=== PATIENT | male | born 1950 | race African-American/Black ===

== ENCOUNTER 2019-04-04 10:53 | Inpatient (IN) | payer MEDICARE, MEDICAID ==
[2019-04-04] VITALS (21 sets, daily range): BP systolic 74–142; BP diastolic 37–74
[~2019-04-04] VITALS: Ht 175.3 cm; Wt 105.2 kg
[~2019-04-04 10:53] MED LIST: ENAL10TA PO; HYDR-2510 PO; HYDR12.54 PO
[2019-04-04] MEDS ORDERED: SODIUM CHLORIDE 0.9% 1,000 ML IV ONE (11:20)
[2019-04-04] MEDS ORDERED: PANTOPRAZOLE SODIUM 40 MG/VIAL IV STA (11:20)
[2019-04-04] MEDS ORDERED: ONDANSETRON HCL 4MG/2ML INJ IV STA (11:20)
[2019-04-04] MEDS ORDERED: MORPHINE SULFATE 4 MG/ML CPJ (NOT FOR IM USE) IV STA (11:20)
[2019-04-04 11:46] LABS: BASOPHILS % 0.2 % (0.0-2.0); EOSINOPHILS % 0.1 % (0.0-5.0); HEMATOCRIT. 21.6 % (42.0-52.0); HEMOGLOBIN. 7.2 g/dL (14.0-18.0); LYMPHOCYTES % 10.9 % (20.0-50.0); MEAN CORPUSCULAR HEMOGLOBIN 32.8 pg (28.0-32.0); MEAN CORPUSCULAR VOLUME 98.9 fL (80.0-94.0); MEAN PLATELET VOLUME 7.7 fl (7.4-10.4); MONOCYTES % 12.2 % (2.0-8.0); NEUTROPHILS % 76.6 % (40.0-76.0); PLATELET 263 x1000/uL (130-400); RED BLOOD CELL COUNT 2.19 mill/uL (4.7-6.1); RED CELL DISTRIBUTION WIDTH 17.1 % (11.6-14.6)
[2019-04-04 11:49] LABS: CHLORIDE 101 mEq/L (98-107)
[2019-04-04 11:51] LABS: INR 1.5; PARTIAL THROMBOPLASTIN TIME 30.8 sec (23.4-31.0); PROTHROMBIN TIME 15.6 sec (9.6-11.0)
[2019-04-04 11:53] LABS: ETHANOL BLOOD < 10 mg/dL
[2019-04-04] MEDS ORDERED: OCTREOTIDE ACETATE 50 MCG/ML 1ML IV ONE (12:00)
[2019-04-04] MEDS ORDERED: OCTREOTIDE 1,000 MCG in SODIUM CHLORIDE 0.9% 100 ML IV ONE (12:00)
[2019-04-04] MEDS ORDERED: SODIUM BICARBONATE 8.4% 1 MEQ/ML 50ML SYR IV ONE (12:15)
[2019-04-04] MEDS ORDERED: DEXTROSE 50% WATER 50ML SYRINGE IV ONE (12:15)
[2019-04-04] MEDS ORDERED: PHYTONADIONE 10MG/ML AMP IM ONE (12:15)
[2019-04-04] MEDS ORDERED: INSULIN REGULAR (HUMULIN R) 300UNITS/3ML IV ONE (12:15)
[2019-04-04] MEDS ORDERED: CALCIUM CHLORIDE 1GM/10ML SYR IV ONE (12:15)
[2019-04-04 12:30] LABS: PHOSPHORUS 7.1 mg/dL (2.5-4.9)
[2019-04-04] MEDS ORDERED: IPRATROPIUM/ALBUTEROL 0.5-3(2.5)MG/3ML NEB HHN PRN (12:30)
[2019-04-04 12:38] LABS: BG BASE EXCESS -10.1 mmol/L (-2.0-2.0); BG CARBOXYHEMOGLOBIN 0.3 % (0.5-1.5); BG DEOXYHEMOGLOBIN 6.3 % (0.0-5.0); BG FRACTION INSPIRED OXYGEN 21; BG HCO3 ACT 15.8 mmol/L (22.0-26.0); BG METHEMOGLOBIN 0.3 % (0.0-1.5); BG OXYGEN SATURATION 93.7 % (92.0-98.5); BG OXYHEMOGLOBIN 93.1 % (94.0-97.0); BG PCO2 34.7 mmHg (35.0-45.0); BG PH 7.275 (7.350-7.450); BG PO2 86.7 mmHg (75.0-100.0); BG SAMPLE SITE RIGHT RADIAL; BG TOTAL HEMOGLOBIN 9.5 g/dL (12.0-18.0); BG VENT MODE ROOM AIR
[2019-04-04] MEDS ORDERED: SODIUM BICARBONATE 8.4% 1 MEQ/ML 50ML SYR IV NR (13:00)
[2019-04-04] MEDS ORDERED: OCTREOTIDE 1,000 MCG in SODIUM CHLORIDE 0.9% 100 ML IV NR (13:15)
[2019-04-04 15:46] LABS: HEPATITIS B SURFACE AB < 3.1 mIU/mL
[2019-04-04 16:27] LABS: HEPATITIS A AB IGM NEGATIVE (NEGATIVE)
[2019-04-04 16:31] LABS: CREATINE KINASE MB FRACTION 7.2 ng/mL (0.5-3.6)
[2019-04-04 16:36] LABS: TOTAL IRON BINDING CAPACITY 247 ug/dL (250-450)
[2019-04-04 16:43] LABS: FOLIC ACID (FOLATE) SERUM 11.1 ng/mL (>5.38)
[2019-04-04] MEDS ORDERED: HEPARIN SODIUM 1,000 UNIT/1ML VIAL IV NR (17:45)
[2019-04-04] MEDS: PANTOPRAZOLE SODIUM 40 MG/VIAL IV SCH (18:55)
[2019-04-04] MEDS ORDERED: PHYTONADIONE 10MG/ML AMP SUBCUT SCH (20:00)
[2019-04-04] MEDS: OCTREOTIDE 1,000 MCG in SODIUM CHLORIDE 0.9% 98 ML IV SCH ×2 (20:00→22:55)
[2019-04-04] MEDS: NOREPINEPHRINE 16 MG in DEXT 5% WATER 234 ML IV PRN ×2 (20:25→20:54)
[2019-04-05] VITALS (101 sets, daily range): BP systolic 81–139; BP diastolic 42–106
[2019-04-05 07:43] LABS: HEMOGLOBIN. 7.5 g/dL (14.0-18.0); MEAN CORPUSCULAR HEMOGLOBIN 33.1 pg (28.0-32.0); MEAN CORPUSCULAR VOLUME 96.9 fL (80.0-94.0); MEAN PLATELET VOLUME 8.1 fl (7.4-10.4); PLATELET 229 x1000/uL (130-400); RED BLOOD CELL COUNT 2.27 mill/uL (4.7-6.1); RED CELL DISTRIBUTION WIDTH 17.3 % (11.6-14.6)
[2019-04-05 07:50] LABS: CHLORIDE 102 mEq/L (98-107)
[2019-04-05 07:51] LABS: INR 1.5; PROTHROMBIN TIME 15.2 sec (9.6-11.0)
[2019-04-05 07:58] LABS: CREATINE KINASE MB FRACTION 5.2 ng/mL (0.5-3.6); LDL CHOLESTEROL 198 mg/dL (5-100)
[2019-04-05 08:00] LABS: CREATINE KINASE 757 IU/L (39-308); HDL CHOLESTEROL 14 mg/dL (40-59)
[2019-04-05] MEDS: PANTOPRAZOLE SODIUM 40 MG/VIAL IV SCH ×2 (08:46→18:59)
[2019-04-05] MEDS ORDERED: MORPHINE SULFATE 4 MG/ML CPJ (NOT FOR IM USE) IV PRN (10:15)
[2019-04-05 14:14] LABS: NUCLEATED RED BLOOD CELLS 9 /100 WBC
[2019-04-05 14:15] LABS: PLATELET ESTIMATE NORMAL
[2019-04-05] MEDS ORDERED: MIDAZOLAM HCL 5 MG/5 ML VIAL ONE (14:39)
[2019-04-05] MEDS ORDERED: FENTANYL CITRATE/PF 50MCG/ML 2ML VIAL ONE (14:39)
[2019-04-05] MEDS ORDERED: SIMETHICONE 40 MG/0.6 ML 30ML ONE (14:40)
[2019-04-05] MEDS ORDERED: MIDAZOLAM HCL 5 MG/5 ML VIAL IV PRN (16:03)
[2019-04-05] MEDS ORDERED: EPINEPHRINE 0.1MG/ML (1:10,000) 10ML SYR ONE (16:29)
[2019-04-05] MEDS ORDERED: PHYTONADIONE 10MG/ML AMP SUBCUT NR (17:15)
[2019-04-05 20:46] LABS: HEMATOCRIT 25.3 % (42.0-52.0); HEMOGLOBIN 8.8 g/dL (14.0-18.0)
[2019-04-05] MEDS: SUCRALFATE 1 G/10 ML UDC PO SCH (21:00)
[2019-04-05] MEDS: PROPRANOLOL HCL 10MG TABLET PO SCH (21:00)
[2019-04-05] MEDS: OCTREOTIDE 1,000 MCG in SODIUM CHLORIDE 0.9% 98 ML IV SCH (21:54)
[2019-04-06] VITALS (94 sets, daily range): BP systolic 92–149; BP diastolic 51–80
[2019-04-06 05:20] LABS: HEMATOCRIT. 29.5 % (42.0-52.0); HEMOGLOBIN. 9.8 g/dL (14.0-18.0); MEAN CORPUSCULAR HEMOGLOBIN 32.5 pg (28.0-32.0); MEAN CORPUSCULAR VOLUME 97.7 fL (80.0-94.0); MEAN PLATELET VOLUME 8.1 fl (7.4-10.4); PLATELET 215 x1000/uL (130-400); RED BLOOD CELL COUNT 3.02 mill/uL (4.7-6.1)
[2019-04-06 05:46] LABS: CREATINE KINASE MB FRACTION 1.7 ng/mL (0.5-3.6)
[2019-04-06] MEDS: SUCRALFATE 1 G/10 ML UDC PO SCH ×4 (05:46→21:00)
[2019-04-06] MEDS: PANTOPRAZOLE SODIUM 40 MG/VIAL IV SCH ×2 (08:29→17:07)
[2019-04-06] MEDS: PROPRANOLOL HCL 10MG TABLET PO SCH ×2 (09:00→21:00)
[2019-04-06 09:03] LABS: NUCLEATED RED BLOOD CELLS 16 /100 WBC; PLATELET ESTIMATE NORMAL
[2019-04-06] MEDS ORDERED: LACTULOSE 300 ML in WATER FOR IRRIGATION,STERILE 700 ML IR SCH (12:00)
[2019-04-06 12:10] LABS: HEPATITIS B SURFACE ANTIGEN NEGATIVE
[2019-04-06 14:12] LABS: CREATINE KINASE 550 IU/L (39-308)
[2019-04-06] MEDS ORDERED: LACTULOSE 20G/30ML UDC PO NR (15:00)
[2019-04-06] MEDS: MORPHINE SULFATE 2 MG/ML CPJ (NOT FOR IM USE) IV PRN (15:52)
[2019-04-06] MEDS: LACTULOSE 20G/30ML UDC PO SCH (22:16)
[2019-04-07] VITALS (96 sets, daily range): BP systolic 90–154; BP diastolic 38–107
[2019-04-07] MEDS: MORPHINE SULFATE 2 MG/ML CPJ (NOT FOR IM USE) IV PRN ×2 (01:08→20:11)
[2019-04-07] MEDS: ONDANSETRON HCL 4MG/2ML INJ IV PRN (01:08)
[2019-04-07] MEDS: DIPHENHYDRAMINE 50MG/ML VIAL IV PRN ×2 (02:08→22:21)
[2019-04-07] MEDS ORDERED: DILTIAZEM HCL 5MG/ML 5ML VIAL IV NR (05:45)
[2019-04-07] MEDS: DILTIAZEM HCL 125 MG in DEXT 5% WATER 100 ML IV NR ×2 (05:51→19:56)
[2019-04-07 05:58] LABS: PHOSPHORUS 3.6 mg/dL (2.5-4.9)
[2019-04-07] MEDS: SUCRALFATE 1 G/10 ML UDC PO SCH ×4 (06:23→21:29)
[2019-04-07] MEDS: LACTULOSE 20G/30ML UDC PO SCH ×3 (06:26→21:30)
[2019-04-07] MEDS: PANTOPRAZOLE SODIUM 40 MG/VIAL IV SCH ×2 (08:31→17:26)
[2019-04-07] MEDS: PROPRANOLOL HCL 10MG TABLET PO SCH ×2 (08:34→21:30)
[2019-04-07] MEDS ORDERED: SUCRALFATE 1 G/10 ML UDC PO SCH (09:30)
[2019-04-07] MEDS: NOREPINEPHRINE 16 MG in DEXT 5% WATER 234 ML IV PRN (10:30)
[2019-04-07] MEDS: OCTREOTIDE 1,000 MCG in SODIUM CHLORIDE 0.9% 98 ML IV SCH (17:40)
[2019-04-07] MEDS ORDERED: DILTIAZEM HCL 125 MG in DEXTROSE 5% WATER 125 ML IV SCH (19:00)
[2019-04-08] VITALS (95 sets, daily range): BP systolic 88–151; BP diastolic 40–82
[2019-04-08] MEDS: MORPHINE SULFATE 2 MG/ML CPJ (NOT FOR IM USE) IV PRN ×2 (04:17→18:50)
[2019-04-08 05:33] LABS: HEMATOCRIT. 28.5 % (42.0-52.0); HEMOGLOBIN. 9.3 g/dL (14.0-18.0); MEAN CORPUSCULAR HEMOGLOBIN 32.8 pg (28.0-32.0); MEAN CORPUSCULAR VOLUME 100.3 fL (80.0-94.0); RED BLOOD CELL COUNT 2.84 mill/uL (4.7-6.1); RED CELL DISTRIBUTION WIDTH 18.1 % (11.6-14.6)
[2019-04-08] MEDS: LACTULOSE 20G/30ML UDC PO SCH ×3 (05:57→21:24)
[2019-04-08] MEDS: SUCRALFATE 1 G/10 ML UDC PO SCH ×4 (05:57→21:24)
[2019-04-08] MEDS: PANTOPRAZOLE SODIUM 40 MG/VIAL IV SCH ×2 (08:58→17:00)
[2019-04-08] MEDS: PROPRANOLOL HCL 10MG TABLET PO SCH ×2 (09:00→21:25)
[2019-04-08 09:40] LABS: NUCLEATED RED BLOOD CELLS 3 /100 WBC; PLATELET ESTIMATE NORMAL
[2019-04-08 09:41] LABS: MEAN PLATELET VOLUME 8.2 fl (7.4-10.4); PLATELET 182 x1000/uL (130-400)
[2019-04-08 11:11] LABS: CREATINE KINASE 203 IU/L (39-308)
[2019-04-09] VITALS (89 sets, daily range): BP systolic 88–145; BP diastolic 44–126
[2019-04-09] MEDS: MORPHINE SULFATE 2 MG/ML CPJ (NOT FOR IM USE) IV PRN (01:21)
[2019-04-09] MEDS: DIPHENHYDRAMINE 50MG/ML VIAL IV PRN ×3 (04:55→16:09)
[2019-04-09] MEDS: SUCRALFATE 1 G/10 ML UDC PO SCH ×4 (05:42→21:36)
[2019-04-09] MEDS: LACTULOSE 20G/30ML UDC PO SCH ×2 (05:42→16:08)
[2019-04-09 05:47] LABS: BASOPHILS % 0.3 % (0.0-2.0); EOSINOPHILS % 0.3 % (0.0-5.0); HEMATOCRIT. 28.7 % (42.0-52.0); HEMOGLOBIN. 9.6 g/dL (14.0-18.0); LYMPHOCYTES % 17.1 % (20.0-50.0); MEAN CORPUSCULAR HEMOGLOBIN 33.4 pg (28.0-32.0); MEAN CORPUSCULAR VOLUME 99.5 fL (80.0-94.0); MONOCYTES % 13.8 % (2.0-8.0); NEUTROPHILS % 68.5 % (40.0-76.0); RED BLOOD CELL COUNT 2.88 mill/uL (4.7-6.1); RED CELL DISTRIBUTION WIDTH 18.5 % (11.6-14.6)
[2019-04-09] MEDS ORDERED: POTASSIUM CHLORIDE 20MEQ/PACKET PO SCH (07:15)
[2019-04-09] MEDS: PROPRANOLOL HCL 10MG TABLET PO SCH ×2 (09:06→21:35)
[2019-04-09] MEDS: PANTOPRAZOLE SODIUM 40 MG/VIAL IV SCH ×2 (09:06→16:09)
[2019-04-09] MEDS: ACETAMINOPHEN 325MG TABLET PO PRN ×3 (09:07→22:18)
[2019-04-09 14:23] LABS: KETONES URINE NEGATIVE (NEGATIVE); LEUKOCYTE ESTERASE URINE NEGATIVE (NEGATIVE); NITRITE URINE NEGATIVE (NEGATIVE); OCCULT BLOOD URINE NEGATIVE (NEGATIVE); PROTEIN URINE NEGATIVE (NEGATIVE); SPECIFIC GRAVITY URINE 1.016 (1.005-1.030); UROBILINOGEN URINE 0.2 E.U./dL (0.2-1.0)
[2019-04-09 14:24] LABS: CLARITY URINE HAZY (CLEAR); COLOR URINE DARK YELLOW (YELLOW)
[2019-04-10] VITALS (12 sets, daily range): BP systolic 89–122; BP diastolic 59–98
[2019-04-10] MEDS: ACETAMINOPHEN 325MG TABLET PO PRN ×3 (03:27→16:51)
[2019-04-10 05:34] LABS: HEMATOCRIT. 25.9 % (42.0-52.0); HEMOGLOBIN. 8.7 g/dL (14.0-18.0); MEAN CORPUSCULAR HEMOGLOBIN 32.7 pg (28.0-32.0); MEAN CORPUSCULAR VOLUME 96.9 fL (80.0-94.0); RED BLOOD CELL COUNT 2.67 mill/uL (4.7-6.1); RED CELL DISTRIBUTION WIDTH 18.2 % (11.6-14.6)
[2019-04-10] MEDS: LACTULOSE 20G/30ML UDC PO SCH ×2 (08:10→17:00)
[2019-04-10] MEDS: SUCRALFATE 1 G/10 ML UDC PO SCH ×4 (08:10→21:25)
[2019-04-10] MEDS: PROPRANOLOL HCL 10MG TABLET PO SCH ×2 (08:11→21:00)
[2019-04-10] MEDS: PANTOPRAZOLE SODIUM 40 MG/VIAL IV SCH ×2 (08:11→17:00)
[2019-04-10 09:13] LABS: PLATELET ESTIMATE NORMAL
[2019-04-10 09:15] LABS: MEAN PLATELET VOLUME 8.8 fl (7.4-10.4); PLATELET 160 x1000/uL (130-400)
[2019-04-10] MEDS: SODIUM CHLORIDE 0.45% 1,000 ML IV SCH (11:30)
[2019-04-10] MEDS: DILTIAZEM HCL 30MG TABLET PO SCH ×2 (17:00→21:26)
[2019-04-11] VITALS (22 sets, daily range): BP systolic 98–136; BP diastolic 49–85
[2019-04-11] MEDS: SODIUM CHLORIDE 0.45% 1,000 ML IV SCH ×2 (02:15→18:46)
[2019-04-11] MEDS: ONDANSETRON HCL 4MG/2ML INJ IV PRN (03:21)
[2019-04-11] MEDS: SUCRALFATE 1 G/10 ML UDC PO SCH ×4 (05:00→21:07)
[2019-04-11] MEDS: DILTIAZEM HCL 30MG TABLET PO SCH (05:00)
[2019-04-11] MEDS: DIPHENHYDRAMINE 50MG/ML VIAL IV PRN (05:00)
[2019-04-11 08:25] LABS: BASOPHILS % 0.4 % (0.0-2.0); EOSINOPHILS % 0.8 % (0.0-5.0); HEMATOCRIT. 26.6 % (42.0-52.0); HEMOGLOBIN. 8.7 g/dL (14.0-18.0); LYMPHOCYTES % 19.5 % (20.0-50.0); MEAN CORPUSCULAR HEMOGLOBIN 32.4 pg (28.0-32.0); MEAN CORPUSCULAR VOLUME 99.1 fL (80.0-94.0); MEAN PLATELET VOLUME 9.6 fl (7.4-10.4); MONOCYTES % 14.8 % (2.0-8.0); NEUTROPHILS % 64.5 % (40.0-76.0); PLATELET 204 x1000/uL (130-400); RED BLOOD CELL COUNT 2.68 mill/uL (4.7-6.1); RED CELL DISTRIBUTION WIDTH 18.3 % (11.6-14.6)
[2019-04-11] MEDS: LACTULOSE 20G/30ML UDC PO SCH ×2 (09:00→17:00)
[2019-04-11] MEDS: PROPRANOLOL HCL 10MG TABLET PO SCH ×2 (09:00→21:07)
[2019-04-11] MEDS: PANTOPRAZOLE SODIUM 40 MG/VIAL IV SCH ×2 (09:31→18:37)
[2019-04-11] MEDS: ACETAMINOPHEN 325MG TABLET PO PRN ×2 (14:56→23:57)
[2019-04-11 16:02] LABS: INR 1.2; PARTIAL THROMBOPLASTIN TIME 33.8 sec (23.4-31.0); PROTHROMBIN TIME 12.3 sec (9.6-11.0)
[2019-04-11] MEDS: MORPHINE SULFATE 2 MG/ML CPJ (NOT FOR IM USE) IV PRN (21:09)
[2019-04-12] VITALS (22 sets, daily range): BP systolic 93–132; BP diastolic 44–71
[2019-04-12 06:16] LABS: BASOPHILS % 0.3 % (0.0-2.0); HEMATOCRIT. 25.1 % (42.0-52.0); HEMOGLOBIN. 8.4 g/dL (14.0-18.0); LYMPHOCYTES % 11.9 % (20.0-50.0); MEAN CORPUSCULAR HEMOGLOBIN 32.4 pg (28.0-32.0); MEAN CORPUSCULAR VOLUME 96.8 fL (80.0-94.0); MONOCYTES % 13.7 % (2.0-8.0); NEUTROPHILS % 73.1 % (40.0-76.0); PLATELET 226 x1000/uL (130-400); RED BLOOD CELL COUNT 2.59 mill/uL (4.7-6.1); RED CELL DISTRIBUTION WIDTH 17.7 % (11.6-14.6)
[2019-04-12] MEDS: SUCRALFATE 1 G/10 ML UDC PO SCH ×4 (07:30→20:10)
[2019-04-12] MEDS ORDERED: POTASSIUM CHLORIDE 20MEQ/PACKET PO NR ×2 (08:00→15:00)
[2019-04-12] MEDS: LACTULOSE 20G/30ML UDC PO SCH ×2 (08:35→12:27)
[2019-04-12] MEDS: PANTOPRAZOLE SODIUM 40 MG/VIAL IV SCH ×2 (08:50→17:43)
[2019-04-12] MEDS: PROPRANOLOL HCL 10MG TABLET PO SCH ×2 (08:54→20:29)
[2019-04-12] MEDS ORDERED: FENTANYL CITRATE/PF 50MCG/ML 2ML VIAL ONE (09:05)
[2019-04-12] MEDS ORDERED: FENTANYL CITRATE/PF 50MCG/ML 2ML VIAL IV ONE (10:00)
[2019-04-12] MEDS: MORPHINE SULFATE 2 MG/ML CPJ (NOT FOR IM USE) IV PRN ×2 (13:42→19:51)
[2019-04-12 17:42] LABS: HEMOGLOBIN 8.5 g/dL (14.0-18.0)
[2019-04-12] MEDS: ONDANSETRON HCL 4MG/2ML INJ IV PRN (23:58)
[2019-04-13] VITALS (12 sets, daily range): BP systolic 86–137; BP diastolic 46–75
[2019-04-13 06:41] LABS: HEMATOCRIT. 24.3 % (42.0-52.0); MEAN CORPUSCULAR HEMOGLOBIN 32.1 pg (28.0-32.0); MEAN CORPUSCULAR VOLUME 96.8 fL (80.0-94.0); MEAN PLATELET VOLUME 9.2 fl (7.4-10.4); PLATELET 274 x1000/uL (130-400); RED CELL DISTRIBUTION WIDTH 17.5 % (11.6-14.6)
[2019-04-13 07:12] LABS: PHOSPHORUS 2.5 mg/dL (2.5-4.9)
[2019-04-13] MEDS: SUCRALFATE 1 G/10 ML UDC PO SCH ×4 (07:30→20:55)
[2019-04-13 08:00] LABS: PLATELET ESTIMATE NORMAL
[2019-04-13] MEDS: LACTULOSE 20G/30ML UDC PO SCH ×3 (08:45→17:54)
[2019-04-13] MEDS: PROPRANOLOL HCL 10MG TABLET PO SCH ×2 (08:47→20:56)
[2019-04-13] MEDS: PANTOPRAZOLE SODIUM 40 MG/VIAL IV SCH ×2 (09:53→17:54)
[2019-04-13] MEDS ORDERED: ATROPINE SULFATE 1MG/10ML SYR IV NR (12:15)
[2019-04-13] MEDS ORDERED: ATROPINE SULFATE 1MG/10ML SYR IV PRN (12:15)
[2019-04-13] MEDS ORDERED: FENTANYL CITRATE/PF 50MCG/ML 2ML VIAL ONE (12:33)
[2019-04-13] MEDS: RIFAXIMIN 550 MG TABLET PO SCH (20:55)
[2019-04-14] VITALS (14 sets, daily range): BP systolic 94–131; BP diastolic 46–75
[2019-04-14] MEDS: SUCRALFATE 1 G/10 ML UDC PO SCH ×4 (07:57→20:30)
[2019-04-14 08:28] LABS: BASOPHILS % 0.6 % (0.0-2.0); EOSINOPHILS % 0.4 % (0.0-5.0); LYMPHOCYTES % 13.5 % (20.0-50.0); MEAN CORPUSCULAR HEMOGLOBIN 31.9 pg (28.0-32.0); MEAN CORPUSCULAR VOLUME 98.1 fL (80.0-94.0); MEAN PLATELET VOLUME 8.6 fl (7.4-10.4); MONOCYTES % 9.2 % (2.0-8.0); NEUTROPHILS % 76.3 % (40.0-76.0); PLATELET 359 x1000/uL (130-400); RED BLOOD CELL COUNT 3.08 mill/uL (4.7-6.1); RED CELL DISTRIBUTION WIDTH 18.3 % (11.6-14.6)
[2019-04-14] MEDS: PANTOPRAZOLE SODIUM 40 MG/VIAL IV SCH ×2 (08:29→16:57)
[2019-04-14] MEDS: LACTULOSE 20G/30ML UDC PO SCH ×3 (08:29→16:58)
[2019-04-14] MEDS: RIFAXIMIN 550 MG TABLET PO SCH ×2 (08:39→20:31)
[2019-04-14] MEDS: PROPRANOLOL HCL 10MG TABLET PO SCH (08:39)
[2019-04-14 08:45] LABS: HEMOGLOBIN. 9.8 g/dL (14.0-18.0)
[2019-04-14 08:46] LABS: HEMATOCRIT. 30.2 % (42.0-52.0)
[2019-04-14] MEDS: MORPHINE SULFATE 2 MG/ML CPJ (NOT FOR IM USE) IV PRN ×2 (10:54→19:01)
[2019-04-15] VITALS (12 sets, daily range): BP systolic 114–146; BP diastolic 63–131
[2019-04-15] MEDS: MORPHINE SULFATE 2 MG/ML CPJ (NOT FOR IM USE) IV PRN ×2 (05:59→20:38)
[2019-04-15 06:33] LABS: BASOPHILS % 0.7 % (0.0-2.0); EOSINOPHILS % 0.7 % (0.0-5.0); LYMPHOCYTES % 9.1 % (20.0-50.0); MEAN CORPUSCULAR HEMOGLOBIN 32.4 pg (28.0-32.0); MEAN CORPUSCULAR VOLUME 97.2 fL (80.0-94.0); MEAN PLATELET VOLUME 8.7 fl (7.4-10.4); MONOCYTES % 9.5 % (2.0-8.0); PLATELET 358 x1000/uL (130-400); RED BLOOD CELL COUNT 2.44 mill/uL (4.7-6.1); RED CELL DISTRIBUTION WIDTH 17.9 % (11.6-14.6)
[2019-04-15 06:51] LABS: CHLORIDE 104 mEq/L (98-107)
[2019-04-15 07:22] LABS: HEMATOCRIT. 23.8 % (42.0-52.0); HEMOGLOBIN. 7.9 g/dL (14.0-18.0)
[2019-04-15] MEDS: PANTOPRAZOLE SODIUM 40 MG/VIAL IV SCH ×2 (08:56→17:03)
[2019-04-15] MEDS: LACTULOSE 20G/30ML UDC PO SCH ×3 (08:56→17:00)
[2019-04-15] MEDS: SUCRALFATE 1 G/10 ML UDC PO SCH ×4 (08:56→20:38)
[2019-04-15] MEDS: RIFAXIMIN 550 MG TABLET PO SCH ×2 (08:56→20:38)
[2019-04-15] MEDS: ACETAMINOPHEN 325MG TABLET PO PRN (15:38)
[2019-04-16] VITALS (22 sets, daily range): BP systolic 103–143; BP diastolic 58–84
[2019-04-16 05:46] LABS: BASOPHILS % 0.3 % (0.0-2.0); EOSINOPHILS % 0.8 % (0.0-5.0); HEMATOCRIT. 22.4 % (42.0-52.0); HEMOGLOBIN. 7.5 g/dL (14.0-18.0); LYMPHOCYTES % 8.3 % (20.0-50.0); MEAN CORPUSCULAR HEMOGLOBIN 32.6 pg (28.0-32.0); MEAN CORPUSCULAR VOLUME 97.5 fL (80.0-94.0); MEAN PLATELET VOLUME 7.9 fl (7.4-10.4); MONOCYTES % 8.8 % (2.0-8.0); NEUTROPHILS % 81.8 % (40.0-76.0); PLATELET 314 x1000/uL (130-400); RED BLOOD CELL COUNT 2.29 mill/uL (4.7-6.1)
[2019-04-16 06:19] LABS: CHLORIDE 104 mEq/L (98-107)
[2019-04-16] MEDS: SUCRALFATE 1 G/10 ML UDC PO SCH ×4 (06:46→21:23)
[2019-04-16] MEDS: LACTULOSE 20G/30ML UDC PO SCH ×3 (08:08→18:36)
[2019-04-16] MEDS: RIFAXIMIN 550 MG TABLET PO SCH ×2 (08:08→21:22)
[2019-04-16] MEDS: PANTOPRAZOLE SODIUM 40 MG/VIAL IV SCH ×2 (08:31→18:36)
[2019-04-16] MEDS ORDERED: LIDOCAINE HCL 1% 20ML VIAL (Pyxis) INJ ONE (09:29)
[2019-04-16] MEDS ORDERED: SODIUM BICARBONATE 4% (2.4MEQ) 5ML VIAL IV ONE (09:29)
[2019-04-16] MEDS ORDERED: FENTANYL CITRATE/PF 50MCG/ML 2ML VIAL ONE (09:29)
[2019-04-16] MEDS ORDERED: FENTANYL CITRATE/PF 50MCG/ML 2ML VIAL IV ONE (11:00)
[2019-04-16] MEDS: MORPHINE SULFATE 2 MG/ML CPJ (NOT FOR IM USE) IV PRN (12:28)
[2019-04-16 15:32] LABS: HEMATOCRIT 21.8 % (42.0-52.0); HEMOGLOBIN 7.3 g/dL (14.0-18.0)
[2019-04-16] MEDS: ACETAMINOPHEN 325MG TABLET PO PRN (21:22)
[2019-04-16] MEDS: MORPHINE SULFATE 4 MG/ML CPJ (NOT FOR IM USE) IV PRN (21:26)
[2019-04-17] VITALS (16 sets, daily range): BP systolic 98–142; BP diastolic 52–99
[2019-04-17] MEDS: PANTOPRAZOLE SODIUM 40 MG/VIAL IV SCH ×2 (08:32→18:10)
[2019-04-17] MEDS: RIFAXIMIN 550 MG TABLET PO SCH ×2 (08:32→21:25)
[2019-04-17] MEDS: SUCRALFATE 1 G/10 ML UDC PO SCH ×4 (08:32→21:25)
[2019-04-17] MEDS: LACTULOSE 20G/30ML UDC PO SCH ×3 (08:32→18:10)
[2019-04-17] MEDS: MORPHINE SULFATE 4 MG/ML CPJ (NOT FOR IM USE) IV PRN (08:34)
[2019-04-17 08:36] LABS: BASOPHILS % 0.9 % (0.0-2.0); EOSINOPHILS % 0.5 % (0.0-5.0); HEMATOCRIT. 26.3 % (42.0-52.0); HEMOGLOBIN. 8.7 g/dL (14.0-18.0); LYMPHOCYTES % 8.7 % (20.0-50.0); MEAN CORPUSCULAR VOLUME 97.5 fL (80.0-94.0); MEAN PLATELET VOLUME 7.6 fl (7.4-10.4); MONOCYTES % 9.3 % (2.0-8.0); NEUTROPHILS % 80.6 % (40.0-76.0); PLATELET 316 x1000/uL (130-400); RED CELL DISTRIBUTION WIDTH 19.2 % (11.6-14.6)
[2019-04-17] MEDS: ACETAMINOPHEN 325MG TABLET PO PRN (21:26)
[2019-04-18] VITALS (11 sets, daily range): BP systolic 112–151; BP diastolic 59–77
[2019-04-18] MEDS: LACTULOSE 20G/30ML UDC PO SCH ×3 (09:00→17:00)
[2019-04-18] MEDS: SUCRALFATE 1 G/10 ML UDC PO SCH ×4 (09:38→21:38)
[2019-04-18] MEDS: PANTOPRAZOLE 40MG DR TABLET PO SCH ×2 (09:38→21:38)
[2019-04-18] MEDS: RIFAXIMIN 550 MG TABLET PO SCH ×2 (09:38→21:38)
[2019-04-18] MEDS: HYDROCODONE/ACETAMINOPHEN 5/325MG TABLET PO PRN ×3 (10:20→21:39)
[2019-04-19 00:05] VITALS: BP 114/77
[2019-04-19] MEDS ORDERED: THIAMINE HCL 100MG TABLET PO SCH (09:00)
[2019-04-19] MEDS ORDERED: MULTIVITAMINS,THER W-MINERALS TABLET PO SCH (09:00)
== END 2019-04-18 23:27 | DRG 432 ==
LOC: ER 11:08 → MICUNO 12:11 → EDBEDREQSVC 12:13 → EDBEDREQTM 12:13 → EDBEDREQ 12:13 → ENRESERV 15:21 → 5EST 04-09 23:15
PROVIDERS: ADMIT Internal Medicine; ATTEND Internal Medicine
PROC: 5A1D70Z Performance of Urinary Filtration, Intermittent, Less than 6 Hours Per Day (ICD-10-PCS; principal; 2019-04-04)
PROC: 02H633Z Insertion of Infusion Device into Right Atrium, Percutaneous Approach (ICD-10-PCS; 2019-04-04)
PROC: B244ZZZ Ultrasonography of Right Heart (ICD-10-PCS; 2019-04-04)
PROC: 06L38CZ Occlusion of Esophageal Vein with Extraluminal Device, Via Natural or Artificial Opening Endoscopic (ICD-10-PCS; 2019-04-05)
PROC: 3E0G8GC Introduction of Other Therapeutic Substance into Upper GI, Via Natural or Artificial Opening Endoscopic (ICD-10-PCS; 2019-04-05)
PROC: 30233N1 Transfusion of Nonautologous Red Blood Cells into Peripheral Vein, Percutaneous Approach (ICD-10-PCS; 2019-04-05)
PROC: 5A1D70Z Performance of Urinary Filtration, Intermittent, Less than 6 Hours Per Day (ICD-10-PCS; 2019-04-06)
PROC: 0FB03ZX Excision of Liver, Percutaneous Approach, Diagnostic (ICD-10-PCS; 2019-04-12)
PROC: 0FB03ZX Excision of Liver, Percutaneous Approach, Diagnostic (ICD-10-PCS; 2019-04-16)
DX: K70.31 Alcoholic cirrhosis of liver with ascites (principal); E43 Unspecified severe protein-calorie malnutrition; K72.00 Acute and subacute hepatic failure without coma; K22.11 Ulcer of esophagus with bleeding; K25.4 Chronic or unspecified gastric ulcer with hemorrhage; I85.11 Secondary esophageal varices with bleeding; K29.71 Gastritis, unspecified, with bleeding; N17.0 Acute kidney failure with tubular necrosis; E87.2 Acidosis; D68.69 Other thrombophilia; I47.1 Supraventricular tachycardia; K76.6 Portal hypertension; I48.92 Unspecified atrial flutter; C22.0 Liver cell carcinoma; L97.429 Non-pressure chronic ulcer of left heel and midfoot with unspecified severity; D68.4 Acquired coagulation factor deficiency; I13.0 Hypertensive heart and chronic kidney disease with heart failure and stage 1 through stage 4 chronic kidney disease, or unspecified chronic kidney disease; E87.1 Hypo-osmolality and hyponatremia; N18.9 Chronic kidney disease, unspecified; G62.9 Polyneuropathy, unspecified; E87.6 Hypokalemia; E66.01 Morbid (severe) obesity due to excess calories; I50.9 Heart failure, unspecified; I25.10 Atherosclerotic heart disease of native coronary artery without angina pectoris; I48.91 Unspecified atrial fibrillation; R26.9 Unspecified abnormalities of gait and mobility; F14.10 Cocaine abuse, uncomplicated; R13.10 Dysphagia, unspecified; R53.81 Other malaise; B18.2 Chronic viral hepatitis C; F10.10 Alcohol abuse, uncomplicated; D75.89 Other specified diseases of blood and blood-forming organs; D50.0 Iron deficiency anemia secondary to blood loss (chronic); E87.5 Hyperkalemia; K80.20 Calculus of gallbladder without cholecystitis without obstruction; E78.5 Hyperlipidemia, unspecified; Z78.1 Physical restraint status; Z72.0 Tobacco use; Z68.34 Body mass index [BMI] 34.0-34.9, adult; Z79.899 Other long term (current) drug therapy; Z71.6 Tobacco abuse counseling; R00.1 Bradycardia, unspecified
CPT/HCPCS: 36415; 36600; 71045; 74181; 76700; 76937; 76942; 77012; 80048; 80061; 80076; 80320; 81003; 82105; 82107; 82140; 82248; 82375; 82550; 82553; 82607; 82728; 82746; 82805; 83540; 83550; 83735; 83880; 84100; 84132; 84443; 84484; 85014; 85018; 86705; 86706; 86709; 86803; 86850; 86900; 86920; 87340; 88307; 88313; 92610; 93005; 93306; 93970; 97110; 97116; 97162; 97166; 97530; 97535; 99152; 99153; 99291; A6261; C1752; C1893; C9113; J0461; J1200; J1644; J1815; J2250; J2270; J2354; J2405; J3010; J3430; J3490; J7030; J7042; J7050; J7060; P9016; G0480; G0500

== ENCOUNTER 2019-04-18 23:23 | Inpatient (IN) | payer MEDICARE, MEDICAID ==
[~2019-04-18] VITALS: Ht 175.3 cm; Wt 101.6 kg
[2019-04-18 23:30] VITALS: BP_SYST 119; BP_SYST 142; BP_DIAS 56; BP_DIAS 80
[2019-04-19] MEDS ORDERED: MORPHINE SULFATE 4 MG/ML CPJ (NOT FOR IM USE) IV PRN (00:45)
[2019-04-19] MEDS ORDERED: ACETAMINOPHEN 325MG TABLET PO PRN (00:45)
[2019-04-19] MEDS ORDERED: DIPHENHYDRAMINE 50MG/ML VIAL IV PRN (00:45)
[2019-04-19] MEDS ORDERED: ONDANSETRON HCL 4MG/2ML INJ IV PRN (00:45)
[2019-04-19] MEDS ORDERED: IPRATROPIUM/ALBUTEROL 0.5-3(2.5)MG/3ML NEB HHN PRN (00:45)
[2019-04-19 00:52] VITALS: BP 119/56
[2019-04-19] MEDS: HYDROCODONE/APAP 7.5/325MG 1 TAB TABLET PO PRN ×3 (05:10→21:10)
[2019-04-19] MEDS: SUCRALFATE 1G TABLET PO SCH ×4 (06:11→21:05)
[2019-04-19] MEDS: PANTOPRAZOLE 40MG DR TABLET PO SCH ×2 (06:11→16:22)
[2019-04-19 06:41] LABS: BASOPHILS % 0.8 % (0.0-2.0); HEMATOCRIT. 23.9 % (42.0-52.0); LYMPHOCYTES % 9.6 % (20.0-50.0); MEAN CORPUSCULAR HEMOGLOBIN 32.7 pg (28.0-32.0); MEAN CORPUSCULAR VOLUME 98.3 fL (80.0-94.0); MEAN PLATELET VOLUME 7.6 fl (7.4-10.4); MONOCYTES % 9.6 % (2.0-8.0); PLATELET 322 x1000/uL (130-400); RED BLOOD CELL COUNT 2.44 mill/uL (4.7-6.1); RED CELL DISTRIBUTION WIDTH 19.3 % (11.6-14.6)
[2019-04-19 06:50] LABS: CHLORIDE 103 mEq/L (98-107)
[2019-04-19 07:55] VITALS: BP 118/79
[2019-04-19 07:58] VITALS: BP 125/64
[2019-04-19 08:07] VITALS: BP 118/74
[2019-04-19] MEDS: RIFAXIMIN 550 MG TABLET PO SCH ×2 (08:40→21:05)
[2019-04-19] MEDS: LACTULOSE 20G/30ML UDC PO SCH ×5 (08:40→18:18)
[2019-04-19] MEDS ORDERED: ONDANSETRON 4MG ODT PO PRN (14:00)
[2019-04-19] MEDS ORDERED: MAGNESIUM 2 G PREMIX 50 ML IV SCH (16:00)
[2019-04-19 20:00] VITALS: BP 117/68
[2019-04-20] MEDS: SUCRALFATE 1G TABLET PO SCH ×4 (06:46→22:00)
[2019-04-20] MEDS: PANTOPRAZOLE 40MG DR TABLET PO SCH ×2 (06:46→16:37)
[2019-04-20] MEDS: HYDROCODONE/APAP 7.5/325MG 1 TAB TABLET PO PRN ×2 (07:46→17:49)
[2019-04-20 08:04] VITALS: BP 133/70
[2019-04-20] MEDS: RIFAXIMIN 550 MG TABLET PO SCH ×2 (08:41→22:00)
[2019-04-20] MEDS: LACTULOSE 20G/30ML UDC PO SCH ×3 (08:42→16:00)
[2019-04-20 20:00] VITALS: BP 112/55
[2019-04-21] MEDS: HYDROCODONE/APAP 7.5/325MG 1 TAB TABLET PO PRN ×4 (00:24→20:01)
[2019-04-21] MEDS: SUCRALFATE 1G TABLET PO SCH ×4 (05:59→20:38)
[2019-04-21] MEDS: PANTOPRAZOLE 40MG DR TABLET PO SCH ×2 (06:00→16:32)
[2019-04-21 07:39] LABS: CHLORIDE 103 mEq/L (98-107)
[2019-04-21 07:50] VITALS: BP 116/52
[2019-04-21 07:50] LABS: FOLIC ACID (FOLATE) SERUM 7.6 ng/mL (>5.38)
[2019-04-21 07:51] LABS: PHOSPHORUS 2.8 mg/dL (2.5-4.9)
[2019-04-21 07:53] LABS: TOTAL IRON BINDING CAPACITY 168 ug/dL (250-450)
[2019-04-21 07:58] LABS: BASOPHILS % 0.7 % (0.0-2.0); EOSINOPHILS % 1.3 % (0.0-5.0); HEMATOCRIT. 22.4 % (42.0-52.0); HEMOGLOBIN. 7.4 g/dL (14.0-18.0); LYMPHOCYTES % 14.5 % (20.0-50.0); MEAN CORPUSCULAR HEMOGLOBIN 32.8 pg (28.0-32.0); MEAN CORPUSCULAR VOLUME 99.5 fL (80.0-94.0); MEAN PLATELET VOLUME 7.9 fl (7.4-10.4); MONOCYTES % 12.8 % (2.0-8.0); NEUTROPHILS % 70.7 % (40.0-76.0); PLATELET 289 x1000/uL (130-400); RED BLOOD CELL COUNT 2.25 mill/uL (4.7-6.1); RED CELL DISTRIBUTION WIDTH 19.7 % (11.6-14.6)
[2019-04-21] MEDS: RIFAXIMIN 550 MG TABLET PO SCH ×2 (08:20→20:38)
[2019-04-21] MEDS: LACTULOSE 20G/30ML UDC PO SCH ×3 (08:21→16:32)
[2019-04-21 10:50] LABS: CHLORIDE 104 mEq/L (98-107)
[2019-04-21 20:00] VITALS: BP 125/56
[2019-04-22] MEDS: SUCRALFATE 1G TABLET PO SCH ×4 (05:37→21:01)
[2019-04-22] MEDS: PANTOPRAZOLE 40MG DR TABLET PO SCH ×2 (05:37→17:20)
[2019-04-22] MEDS: HYDROCODONE/APAP 7.5/325MG 1 TAB TABLET PO PRN ×3 (06:19→19:02)
[2019-04-22 07:29] LABS: CHLORIDE 103 mEq/L (98-107)
[2019-04-22 07:49] LABS: T4 FREE 1.23 ng/dL (0.76-1.46)
[2019-04-22 08:00] VITALS: BP 100/56
[2019-04-22] MEDS: LACTULOSE 20G/30ML UDC PO SCH ×3 (08:25→17:00)
[2019-04-22] MEDS: RIFAXIMIN 550 MG TABLET PO SCH ×2 (08:27→21:01)
[2019-04-22] MEDS ORDERED: FUROSEMIDE 40MG/4ML VIAL IVP NR (12:30)
[2019-04-22] MEDS ORDERED: FUROSEMIDE 40MG TABLET PO NR ×2 (13:30→18:00)
[2019-04-22 20:00] VITALS: BP 125/68
[2019-04-23] MEDS: HYDROCODONE/APAP 7.5/325MG 1 TAB TABLET PO PRN ×4 (03:05→19:01)
[2019-04-23] MEDS: SUCRALFATE 1G TABLET PO SCH ×4 (05:47→20:36)
[2019-04-23] MEDS: PANTOPRAZOLE 40MG DR TABLET PO SCH ×2 (05:47→17:07)
[2019-04-23] MEDS: FUROSEMIDE 40MG/4ML VIAL IVP SCH ×2 (06:53→17:07)
[2019-04-23 07:36] LABS: CHLORIDE 104 mEq/L (98-107)
[2019-04-23 07:42] LABS: PHOSPHORUS 2.9 mg/dL (2.5-4.9)
[2019-04-23 08:00] VITALS: BP 111/65
[2019-04-23] MEDS: RIFAXIMIN 550 MG TABLET PO SCH ×2 (08:27→20:36)
[2019-04-23] MEDS: POTASSIUM CHLORIDE 20MEQ TABLET SR PO SCH (08:27)
[2019-04-23] MEDS: LACTULOSE 20G/30ML UDC PO SCH ×3 (08:28→17:00)
[2019-04-23 20:00] VITALS: BP 136/77
[2019-04-24] MEDS: HYDROCODONE/APAP 7.5/325MG 1 TAB TABLET PO PRN ×5 (01:28→23:07)
[2019-04-24 06:30] LABS: HEMATOCRIT. 22.5 % (42.0-52.0); HEMOGLOBIN. 7.7 g/dL (14.0-18.0); MEAN CORPUSCULAR HEMOGLOBIN 33.3 pg (28.0-32.0); MEAN CORPUSCULAR VOLUME 97.9 fL (80.0-94.0); MEAN PLATELET VOLUME 7.5 fl (7.4-10.4); PLATELET 337 x1000/uL (130-400); RED CELL DISTRIBUTION WIDTH 19.2 % (11.6-14.6)
[2019-04-24] MEDS: FUROSEMIDE 40MG/4ML VIAL IVP SCH (06:35)
[2019-04-24] MEDS: PANTOPRAZOLE 40MG DR TABLET PO SCH ×2 (06:35→17:10)
[2019-04-24] MEDS: SUCRALFATE 1G TABLET PO SCH ×4 (06:35→20:32)
[2019-04-24 06:41] LABS: CHLORIDE 104 mEq/L (98-107)
[2019-04-24 06:53] LABS: PHOSPHORUS 2.9 mg/dL (2.5-4.9)
[2019-04-24] MEDS: LACTULOSE 20G/30ML UDC PO SCH ×4 (07:57→17:11)
[2019-04-24 08:00] VITALS: BP 109/96
[2019-04-24] MEDS: RIFAXIMIN 550 MG TABLET PO SCH ×2 (08:03→20:32)
[2019-04-24] MEDS: POTASSIUM CHLORIDE 20MEQ TABLET SR PO SCH (08:04)
[2019-04-24] MEDS ORDERED: MAGNESIUM 2 G PREMIX 50 ML IV ONE (15:30)
[2019-04-24 16:29] LABS: PLATELET ESTIMATE NORMAL
[2019-04-24] MEDS: FUROSEMIDE 40MG TABLET PO SCH (17:10)
[2019-04-24 20:00] VITALS: BP 106/52
[2019-04-25] MEDS: PANTOPRAZOLE 40MG DR TABLET PO SCH (06:24)
[2019-04-25] MEDS: FUROSEMIDE 40MG TABLET PO SCH (06:24)
[2019-04-25] MEDS: SUCRALFATE 1G TABLET PO SCH ×2 (06:24→11:30)
[2019-04-25] MEDS: HYDROCODONE/APAP 7.5/325MG 1 TAB TABLET PO PRN ×2 (06:34→11:39)
[2019-04-25 07:33] LABS: HEMATOCRIT. 23.8 % (42.0-52.0); HEMOGLOBIN. 7.9 g/dL (14.0-18.0); MEAN CORPUSCULAR HEMOGLOBIN 32.7 pg (28.0-32.0); MEAN CORPUSCULAR VOLUME 98.7 fL (80.0-94.0); MEAN PLATELET VOLUME 7.6 fl (7.4-10.4); PLATELET 353 x1000/uL (130-400); RED BLOOD CELL COUNT 2.41 mill/uL (4.7-6.1); RED CELL DISTRIBUTION WIDTH 19.2 % (11.6-14.6)
[2019-04-25 08:00] VITALS: BP 126/60
[2019-04-25 08:29] LABS: CHLORIDE 104 mEq/L (98-107)
[2019-04-25] MEDS: POTASSIUM CHLORIDE 20MEQ TABLET SR PO SCH (08:37)
[2019-04-25] MEDS: LACTULOSE 20G/30ML UDC PO SCH ×2 (08:37→12:14)
[2019-04-25] MEDS: RIFAXIMIN 550 MG TABLET PO SCH (08:37)
[2019-04-25 10:02] LABS: PLATELET ESTIMATE NORMAL
[2019-04-25 10:35] VITALS: BP 116/61
[2019-04-25 11:39] VITALS: BP 123/57
[2019-04-26 17:11] LABS: 25-HYDROXY VITAMIN D3 9.8 ng/mL (.)
== END 2019-04-25 16:50 | disposition home health service (06) | DRG 441 ==
PROVIDERS: ADMIT Physical Medicine & Rehabilitation Spinal Cord Injury Medicine; ATTEND Internal Medicine
DX: K72.00 Acute and subacute hepatic failure without coma (principal); E43 Unspecified severe protein-calorie malnutrition; I85.11 Secondary esophageal varices with bleeding; K29.71 Gastritis, unspecified, with bleeding; C22.0 Liver cell carcinoma; N17.9 Acute kidney failure, unspecified; E87.2 Acidosis; I13.0 Hypertensive heart and chronic kidney disease with heart failure and stage 1 through stage 4 chronic kidney disease, or unspecified chronic kidney disease; I47.1 Supraventricular tachycardia; K22.10 Ulcer of esophagus without bleeding; K76.6 Portal hypertension; R13.10 Dysphagia, unspecified; D50.0 Iron deficiency anemia secondary to blood loss (chronic); R26.9 Unspecified abnormalities of gait and mobility; G62.9 Polyneuropathy, unspecified; F10.20 Alcohol dependence, uncomplicated; E87.5 Hyperkalemia; E83.51 Hypocalcemia; E78.5 Hyperlipidemia, unspecified; I50.9 Heart failure, unspecified; B18.2 Chronic viral hepatitis C; D75.89 Other specified diseases of blood and blood-forming organs; E03.9 Hypothyroidism, unspecified; E66.01 Morbid (severe) obesity due to excess calories; E78.00 Pure hypercholesterolemia, unspecified; I25.10 Atherosclerotic heart disease of native coronary artery without angina pectoris; I48.91 Unspecified atrial fibrillation; K74.60 Unspecified cirrhosis of liver; K80.20 Calculus of gallbladder without cholecystitis without obstruction; N18.9 Chronic kidney disease, unspecified; Z87.891 Personal history of nicotine dependence; Z68.33 Body mass index [BMI] 33.0-33.9, adult
CPT/HCPCS: 36415; 80048; 80076; 82140; 82248; 82306; 82533; 82607; 82728; 82746; 83540; 83550; 83735; 84100; 84134; 84439; 84443; 84481; 86376; 92523; 92610; 93005; 93970; 97110; 97116; 97127; 97162; 97166; 97530; 97535; G0515; J1940; J3475; J7040; Q0162

== ENCOUNTER 2019-08-31 12:27 | Inpatient (IN) | payer MEDICAID, MEDICARE ==
[~2019-08-31] VITALS: Ht 175.3 cm; Wt 74.8 kg
[2019-08-31] MEDS ORDERED: ONDANSETRON HCL 4MG/2ML INJ IV STA (18:32)
[2019-08-31] MEDS ORDERED: SODIUM CHLORIDE 0.9% 1,000 ML IV ONE (18:32)
[2019-08-31] MEDS ORDERED: MORPHINE SULFATE 4 MG/ML CPJ (NOT FOR IM USE) IV STA (18:32)
[2019-08-31] MEDS ORDERED: VANCOMYCIN 1 G PREMIX 200 ML IV ONE (18:45)
[2019-08-31] MEDS ORDERED: PIPERACILLIN/TAZ 3.375G PREMIX 50 ML IV ONE (18:45)
[2019-08-31 19:45] LABS: BASOPHILS % 0.8 % (0.0-2.0); EOSINOPHILS % 0.4 % (0.0-5.0); HEMATOCRIT. 29.5 % (42.0-52.0); HEMOGLOBIN. 9.8 g/dL (14.0-18.0); MEAN CORPUSCULAR HEMOGLOBIN 34.4 pg (28.0-32.0); MEAN PLATELET VOLUME 7.6 fl (7.4-10.4); MONOCYTES % 14.5 % (2.0-8.0); NEUTROPHILS % 67.3 % (40.0-76.0); PLATELET 292 x1000/uL (130-400); RED BLOOD CELL COUNT 2.86 mill/uL (4.7-6.1); RED CELL DISTRIBUTION WIDTH 18.6 % (11.6-14.6)
[2019-08-31 19:54] LABS: CHLORIDE 109 mEq/L (98-107); INR 1.2; PROTHROMBIN TIME 12.3 sec (9.6-11.0)
[2019-08-31 19:57] LABS: ETHANOL BLOOD < 10 mg/dL
[2019-08-31 20:49] LABS: CLARITY URINE CLEAR (CLEAR); COLOR URINE DARK YELLOW (YELLOW); KETONES URINE TRACE (NEGATIVE); LEUKOCYTE ESTERASE URINE TRACE (NEGATIVE); NITRITE URINE NEGATIVE (NEGATIVE); OCCULT BLOOD URINE NEGATIVE (NEGATIVE); PH URINE 5.5 (4.5-8.0); PROTEIN URINE TRACE (NEGATIVE); SPECIFIC GRAVITY URINE 1.025 (1.005-1.030)
[2019-08-31 21:09] LABS: *AMPHETAMINES SCREEN URINE NEGATIVE (NEGATIVE); *BARBITURATES SCREEN URINE NEGATIVE (NEGATIVE); *BENZODIAZEPINES SCREEN URINE NEGATIVE (NEGATIVE); CANNABINOID URINE SCREEN NEGATIVE (NEGATIVE); PHENCYCLIDINE URINE SCREEN NEGATIVE (NEGATIVE)
[2019-08-31 21:10] LABS: *COCAINE SCREEN URINE NEGATIVE (NEGATIVE); METHADONE URINE SCREEN NEGATIVE (NEGATIVE); OPIATES URINE SCREEN PRESUMTIVE POSITIVE (NEGATIVE)
[2019-08-31] MEDS ORDERED: MAGNESIUM/ALUMINUM HYDROXIDE/SIMETHICONE 30ML UDC PO PRN (23:15)
[2019-08-31] MEDS ORDERED: DOCUSATE SODIUM 100MG CAPSULE PO PRN (23:15)
[2019-08-31] MEDS ORDERED: CLONIDINE 0.1MG TABLET PO PRN (23:15)
[2019-08-31] MEDS ORDERED: IPRATROPIUM/ALBUTEROL 0.5-3(2.5)MG/3ML NEB NEB PRN (23:15)
[2019-08-31] MEDS ORDERED: ONDANSETRON HCL 4MG/2ML INJ IV PRN (23:15)
[2019-09-01] VITALS (7 sets, daily range): BP systolic 103–130; BP diastolic 58–85
[2019-09-01] MEDS: HYDROCODONE/ACETAMINOPHEN 5/325MG TABLET PO PRN ×4 (00:37→18:00)
[2019-09-01] MEDS: ENOXAPARIN 40MG/0.4ML SYR SUBCUT SCH ×2 (03:55→20:55)
[2019-09-01] MEDS ORDERED: PIPERACILLIN/TAZOBACTAM 3.375 G in DEXT 5% WATER 100 ML IV SCH (04:00)
[2019-09-01] MEDS ORDERED: LENV8CAP PO (04:26)
[2019-09-01] MEDS ORDERED: FURO40TA5 PO (04:27)
[2019-09-01] MEDS ORDERED: PANT40TA4 PO (04:27)
[2019-09-01] MEDS ORDERED: DOCU100T PO (04:28)
[2019-09-01] MEDS ORDERED: SUCR1TAB PO (04:28)
[2019-09-01] MEDS ORDERED: POTA20TA82 PO (04:29)
[2019-09-01] MEDS ORDERED: GABA-531 PO (04:29)
[2019-09-01] MEDS: MULTIVITAMINS,THER W-MINERALS TABLET PO SCH (09:46)
[2019-09-01] MEDS: FOLIC ACID 1MG TABLET PO SCH (09:46)
[2019-09-01] MEDS: THIAMINE HCL 100MG TABLET PO SCH (09:47)
[2019-09-01 10:01] LABS: CHLORIDE 109 mEq/L (98-107)
[2019-09-01 10:08] LABS: LDL CHOLESTEROL 178 mg/dL (5-100)
[2019-09-01 10:09] LABS: CREATINE KINASE 84 IU/L (39-308)
[2019-09-01 10:10] LABS: HDL CHOLESTEROL 23 mg/dL (40-59)
[2019-09-01 10:13] LABS: BASOPHILS % 0.6 % (0.0-2.0); CREATINE KINASE MB FRACTION < 1.0 ng/mL (0.5-3.6); EOSINOPHILS % 4.6 % (0.0-5.0); HEMATOCRIT. 28.3 % (42.0-52.0); HEMOGLOBIN. 9.3 g/dL (14.0-18.0); LYMPHOCYTES % 20.1 % (20.0-50.0); MEAN CORPUSCULAR HEMOGLOBIN 34.3 pg (28.0-32.0); MEAN PLATELET VOLUME 7.5 fl (7.4-10.4); MONOCYTES % 12.6 % (2.0-8.0); NEUTROPHILS % 62.1 % (40.0-76.0); PLATELET 286 x1000/uL (130-400); RED BLOOD CELL COUNT 2.72 mill/uL (4.7-6.1); RED CELL DISTRIBUTION WIDTH 18.5 % (11.6-14.6)
[2019-09-01] MEDS: PIPERACILLIN/TAZOBACTAM 3.375 G in DEXT 5% WATER 100 ML IV SCH ×2 (13:35→17:59)
[2019-09-01] MEDS: MORPHINE SULFATE 2 MG/ML CPJ (NOT FOR IM USE) IV PRN ×2 (16:00→20:55)
[2019-09-01 16:31] LABS: CREATINE KINASE 76 IU/L (39-308)
[2019-09-01 16:32] LABS: CREATINE KINASE MB FRACTION < 1.0 ng/mL (0.5-3.6)
[2019-09-02] VITALS: BP 106/59
[2019-09-02] MEDS: PIPERACILLIN/TAZOBACTAM 3.375 G in DEXT 5% WATER 100 ML IV SCH ×2 (00:41→06:07)
[2019-09-02] MEDS: MORPHINE SULFATE 2 MG/ML CPJ (NOT FOR IM USE) IV PRN ×5 (01:25→20:22)
[2019-09-02 04:00] VITALS: BP 107/52
[2019-09-02 08:00] VITALS: BP 123/62
[2019-09-02] MEDS: FOLIC ACID 1MG TABLET PO SCH (09:28)
[2019-09-02] MEDS: MULTIVITAMINS,THER W-MINERALS TABLET PO SCH (09:30)
[2019-09-02] MEDS: THIAMINE HCL 100MG TABLET PO SCH (09:30)
[2019-09-02] MEDS: HYDROCODONE/ACETAMINOPHEN 5/325MG TABLET PO PRN (09:30)
[2019-09-02 12:00] VITALS: BP 131/66
[2019-09-02] MEDS: FUROSEMIDE 40MG/4ML VIAL IVP SCH ×2 (12:30→16:36)
[2019-09-02 16:00] VITALS: BP 118/62
[2019-09-02 20:00] VITALS: BP 129/67
[2019-09-02] MEDS: ACETAMINOPHEN 325MG TABLET PO PRN (20:23)
[2019-09-02] MEDS: ENOXAPARIN 40MG/0.4ML SYR SUBCUT SCH (20:23)
[2019-09-03] VITALS: BP 109/58
[2019-09-03] MEDS: MORPHINE SULFATE 2 MG/ML CPJ (NOT FOR IM USE) IV PRN ×3 (00:33→11:39)
[2019-09-03 04:00] VITALS: BP 123/53
[2019-09-03 07:05] LABS: BASOPHILS % 0.8 % (0.0-2.0); EOSINOPHILS % 4.2 % (0.0-5.0); HEMATOCRIT. 24.5 % (42.0-52.0); HEMOGLOBIN. 8.4 g/dL (14.0-18.0); LYMPHOCYTES % 17.4 % (20.0-50.0); MEAN CORPUSCULAR VOLUME 102.6 fL (80.0-94.0); MEAN PLATELET VOLUME 7.8 fl (7.4-10.4); MONOCYTES % 14.5 % (2.0-8.0); NEUTROPHILS % 63.1 % (40.0-76.0); PLATELET 234 x1000/uL (130-400); RED BLOOD CELL COUNT 2.39 mill/uL (4.7-6.1)
[2019-09-03 07:14] LABS: CHLORIDE 109 mEq/L (98-107)
[2019-09-03 07:27] LABS: PHOSPHORUS 2.6 mg/dL (2.5-4.9)
[2019-09-03 08:00] VITALS: BP 109/61
[2019-09-03] MEDS: FOLIC ACID 1MG TABLET PO SCH (08:39)
[2019-09-03] MEDS: MULTIVITAMINS,THER W-MINERALS TABLET PO SCH (08:39)
[2019-09-03] MEDS: THIAMINE HCL 100MG TABLET PO SCH (08:39)
[2019-09-03] MEDS: FUROSEMIDE 40MG/4ML VIAL IVP SCH ×2 (08:39→17:25)
[2019-09-03 12:00] VITALS: BP 124/68
[2019-09-03 16:00] VITALS: BP 122/66
[2019-09-03] MEDS: ACETAMINOPHEN 325MG TABLET PO PRN (16:07)
[2019-09-03] MEDS ORDERED: POTASSIUM CHLORIDE 20MEQ TABLET SR PO NR (16:15)
[2019-09-03] MEDS ORDERED: NON FORMULARY PATIENT HOME MED XX SCH (16:15)
[2019-09-03] MEDS: SUCRALFATE 1G TABLET PO SCH (17:22)
[2019-09-03] MEDS: PANTOPRAZOLE 40MG DR TABLET PO SCH (17:23)
[2019-09-03] MEDS: HYDROCODONE/ACETAMINOPHEN 10/325MG TABLET PO PRN (17:25)
[2019-09-03] MEDS: LENVIMA PO SCH (19:12)
[2019-09-03] MEDS: HYDROMORPHONE HCL/PF 2MG/ML CPJ IV PRN ×2 (19:13→22:09)
[2019-09-03 20:00] VITALS: BP 130/73
[2019-09-03] MEDS: ENALAPRIL 5MG TABLET PO SCH (21:00)
[2019-09-03] MEDS: GABAPENTIN 300MG CAPSULE PO SCH (21:46)
[2019-09-03] MEDS: ENOXAPARIN 40MG/0.4ML SYR SUBCUT SCH (21:48)
[2019-09-04] VITALS: BP 130/73
[2019-09-04] MEDS: HYDROCODONE/ACETAMINOPHEN 10/325MG TABLET PO PRN ×3 (00:12→17:35)
[2019-09-04 04:00] VITALS: BP 122/83
[2019-09-04] MEDS: HYDROMORPHONE HCL/PF 2MG/ML CPJ IV PRN ×3 (04:13→20:08)
[2019-09-04 07:35] LABS: BASOPHILS % 0.8 % (0.0-2.0); EOSINOPHILS % 5.4 % (0.0-5.0); HEMATOCRIT. 25.3 % (42.0-52.0); HEMOGLOBIN. 8.5 g/dL (14.0-18.0); LYMPHOCYTES % 20.5 % (20.0-50.0); MEAN CORPUSCULAR HEMOGLOBIN 34.9 pg (28.0-32.0); MEAN CORPUSCULAR VOLUME 103.9 fL (80.0-94.0); MEAN PLATELET VOLUME 7.9 fl (7.4-10.4); MONOCYTES % 13.7 % (2.0-8.0); NEUTROPHILS % 59.6 % (40.0-76.0); PLATELET 227 x1000/uL (130-400); RED BLOOD CELL COUNT 2.44 mill/uL (4.7-6.1); RED CELL DISTRIBUTION WIDTH 18.8 % (11.6-14.6)
[2019-09-04 07:41] LABS: CHLORIDE 108 mEq/L (98-107)
[2019-09-04] MEDS: THIAMINE HCL 100MG TABLET PO SCH (09:42)
[2019-09-04] MEDS: FOLIC ACID 1MG TABLET PO SCH (09:42)
[2019-09-04] MEDS: PANTOPRAZOLE 40MG DR TABLET PO SCH ×2 (09:43→17:36)
[2019-09-04] MEDS: ENALAPRIL 5MG TABLET PO SCH ×2 (09:43→21:23)
[2019-09-04] MEDS: MULTIVITAMINS,THER W-MINERALS TABLET PO SCH (09:43)
[2019-09-04] MEDS: FUROSEMIDE 40MG/4ML VIAL IVP SCH ×2 (09:44→17:35)
[2019-09-04] MEDS: SUCRALFATE 1G TABLET PO SCH ×2 (09:44→17:36)
[2019-09-04] MEDS: LENVIMA PO SCH (09:46)
[2019-09-04 12:00] VITALS: BP 134/72
[2019-09-04 16:00] VITALS: BP 128/84
[2019-09-04 20:00] VITALS: BP 131/60
[2019-09-04] MEDS: GABAPENTIN 300MG CAPSULE PO SCH (21:22)
[2019-09-04] MEDS: ENOXAPARIN 40MG/0.4ML SYR SUBCUT SCH (21:23)
[2019-09-05] VITALS: BP 133/69
[2019-09-05] MEDS: HYDROCODONE/ACETAMINOPHEN 10/325MG TABLET PO PRN ×2 (00:04→22:59)
[2019-09-05 04:00] VITALS: BP 130/65
[2019-09-05] MEDS: HYDROMORPHONE HCL/PF 2MG/ML CPJ IV PRN ×3 (04:04→20:59)
[2019-09-05 06:46] LABS: BASOPHILS % 0.7 % (0.0-2.0); EOSINOPHILS % 4.7 % (0.0-5.0); HEMATOCRIT. 28.7 % (42.0-52.0); HEMOGLOBIN. 9.4 g/dL (14.0-18.0); LYMPHOCYTES % 20.6 % (20.0-50.0); MEAN CORPUSCULAR HEMOGLOBIN 34.2 pg (28.0-32.0); MEAN CORPUSCULAR VOLUME 104.3 fL (80.0-94.0); MEAN PLATELET VOLUME 7.7 fl (7.4-10.4); MONOCYTES % 14.7 % (2.0-8.0); NEUTROPHILS % 59.3 % (40.0-76.0); PLATELET 253 x1000/uL (130-400); RED BLOOD CELL COUNT 2.76 mill/uL (4.7-6.1); RED CELL DISTRIBUTION WIDTH 19.1 % (11.6-14.6)
[2019-09-05 08:16] LABS: CHLORIDE 107 mEq/L (98-107)
[2019-09-05] MEDS: LENVIMA PO SCH (09:00)
[2019-09-05] MEDS: SUCRALFATE 1G TABLET PO SCH ×2 (10:35→18:11)
[2019-09-05] MEDS: THIAMINE HCL 100MG TABLET PO SCH (10:36)
[2019-09-05] MEDS: PANTOPRAZOLE 40MG DR TABLET PO SCH (10:36)
[2019-09-05] MEDS: FOLIC ACID 1MG TABLET PO SCH (10:37)
[2019-09-05] MEDS: MULTIVITAMINS,THER W-MINERALS TABLET PO SCH (10:37)
[2019-09-05] MEDS: FUROSEMIDE 40MG/4ML VIAL IVP SCH ×2 (10:37→18:11)
[2019-09-05] MEDS: ENALAPRIL 5MG TABLET PO SCH ×2 (10:52→20:50)
[2019-09-05] MEDS: GABAPENTIN 300MG CAPSULE PO SCH ×3 (10:52→18:11)
[2019-09-05 20:00] VITALS: BP 134/82
[2019-09-05] MEDS: FAMOTIDINE 20MG TABLET PO SCH (20:50)
[2019-09-05] MEDS: ENOXAPARIN 40MG/0.4ML SYR SUBCUT SCH (20:51)
[2019-09-06] VITALS (7 sets, daily range): BP systolic 107–130; BP diastolic 51–80
[2019-09-06 06:14] LABS: BASOPHILS % 0.5 % (0.0-2.0); EOSINOPHILS % 5.5 % (0.0-5.0); HEMATOCRIT. 28.5 % (42.0-52.0); HEMOGLOBIN. 9.6 g/dL (14.0-18.0); LYMPHOCYTES % 20.6 % (20.0-50.0); MEAN CORPUSCULAR HEMOGLOBIN 34.7 pg (28.0-32.0); MEAN CORPUSCULAR VOLUME 103.3 fL (80.0-94.0); MEAN PLATELET VOLUME 7.9 fl (7.4-10.4); MONOCYTES % 13.9 % (2.0-8.0); NEUTROPHILS % 59.5 % (40.0-76.0); PLATELET 267 x1000/uL (130-400); RED BLOOD CELL COUNT 2.76 mill/uL (4.7-6.1); RED CELL DISTRIBUTION WIDTH 18.5 % (11.6-14.6)
[2019-09-06] MEDS: HYDROMORPHONE HCL/PF 2MG/ML CPJ IV PRN ×4 (06:48→19:05)
[2019-09-06] MEDS: LENVIMA PO SCH ×2 (09:00→09:11)
[2019-09-06] MEDS: FOLIC ACID 1MG TABLET PO SCH (09:12)
[2019-09-06] MEDS: GABAPENTIN 300MG CAPSULE PO SCH ×3 (09:12→19:05)
[2019-09-06] MEDS: MULTIVITAMINS,THER W-MINERALS TABLET PO SCH (09:12)
[2019-09-06] MEDS: THIAMINE HCL 100MG TABLET PO SCH (09:12)
[2019-09-06] MEDS: FAMOTIDINE 20MG TABLET PO SCH (09:12)
[2019-09-06] MEDS: FUROSEMIDE 40MG/4ML VIAL IVP SCH ×2 (09:12→17:00)
[2019-09-06] MEDS: SUCRALFATE 1G TABLET PO SCH ×2 (09:12→19:05)
[2019-09-06] MEDS: ENALAPRIL 5MG TABLET PO SCH (09:26)
[2019-09-06 09:42] LABS: CHLORIDE 105 mEq/L (98-107)
== END 2019-09-06 21:35 | DRG 602 ==
LOC: ER 12:29 → EDBEDREQSVC 22:36 → EDBEDREQTM 22:36 → EDBEDREQ 22:36 → ENRESERV 09-01 00:20 → 7WST 09-01 02:00
PROVIDERS: ADMIT Internal Medicine; ATTEND Internal Medicine
DX: L03.115 Cellulitis of right lower limb (principal); E43 Unspecified severe protein-calorie malnutrition; E87.2 Acidosis; L97.929 Non-pressure chronic ulcer of unspecified part of left lower leg with unspecified severity; E03.9 Hypothyroidism, unspecified; E78.5 Hyperlipidemia, unspecified; K72.90 Hepatic failure, unspecified without coma; B18.2 Chronic viral hepatitis C; F10.10 Alcohol abuse, uncomplicated; I10 Essential (primary) hypertension; E87.6 Hypokalemia; I12.9 Hypertensive chronic kidney disease with stage 1 through stage 4 chronic kidney disease, or unspecified chronic kidney disease; N18.9 Chronic kidney disease, unspecified; R16.0 Hepatomegaly, not elsewhere classified; K74.60 Unspecified cirrhosis of liver; I87.8 Other specified disorders of veins; F14.10 Cocaine abuse, uncomplicated; D64.9 Anemia, unspecified; I77.9 Disorder of arteries and arterioles, unspecified; E88.09 Other disorders of plasma-protein metabolism, not elsewhere classified; I48.0 Paroxysmal atrial fibrillation; Z68.24 Body mass index [BMI] 24.0-24.9, adult; Z79.899 Other long term (current) drug therapy; Z85.05 Personal history of malignant neoplasm of liver; Z71.6 Tobacco abuse counseling; Z72.0 Tobacco use
CPT/HCPCS: 36415; 71045; 80048; 80053; 80061; 80305; 80320; 81003; 82550; 82553; 82962; 83605; 83735; 84100; 84145; 84443; 84484; 85025; 87804; 93005; 93923; 93970; 97110; 97162; 99291; C1893; J1170; J1650; J1940; J2270; J2405; J2543; J3370; J7030; J7060; G0480